=== PATIENT | male | born 1960 | race Caucasian/White ===

== ENCOUNTER → 2019-04-11 | Outpatient (CLI) | payer OTHER ==
[~2019-04-11] MED LIST: AMLODIPINE BESYL5 MG PO; ASPIR 8181 MG; ATIVAN1 MG PO; CRESTOR10 MG PO
== END ==
LOC: SLEEP 19:44
PROVIDERS: ATTEND Internal Medicine
DX: G47.33 Obstructive sleep apnea (adult) (pediatric) (principal)
CPT/HCPCS: 95811

== ENCOUNTER → 2019-04-19 | Outpatient (CLI) | payer OTHER ==
[~2019-04-19] MED LIST changes: +IOPAMIDOL 370 MG/ML 200 ML INFUS..BTL INJ ONE; +SODIUM CHLORIDE 0.9% 100 ML ONE
[2019-04-19 17:15] LABS: BLOOD UREA NITROGEN 17 mg/dL (7-26); BUN/CREATININE RATIO 14 (6-25); CREATININE, SERUM 1.22 mg/dL (0.72-1.25); EST GLOMERULAR FILTRATION RATE > 60 ML/MIN (60-)
--- NOTE | 2019-04-20 09:02 | Diagnostic Imaging Report ---
EXAM: CTA OF THE ABDOMINAL AORTA AND PELVIC ARTERIES INDICATION: Abdominal aortic aneurysm COMPARISON: None. TECHNIQUE: Multi-detector CT technology was employed. CTA of the abdomen and pelvis was performed after the administration of IV contrast. IV CONTRAST: 100 mL of Isovue-370 ORAL CONTRAST: None COMPLICATIONS: None RADIATION DOSE: Total DLP: 1160.58 mGy*cm Estimated effective dose: (DLP x 0.015 x size factor) mSv CTDIvol has been reviewed. It is below the limits set by the Radiation Protocol Committee (RPC). For optimization of anatomic evaluation, multiplanar reconstruction, maximum intensity projections, and advanced 3-D off-line postprocessing were performed on a dedicated stand-alone workstation under the direct supervision of the interpreting physician. FINDINGS: Potential study limitations: None. VASCULAR WITH ADVANCED 3-D OFF-LINE POSTPROCESSING: Status post endovascular repair of abdominal aortic aneurysm. The cranial margin of the graft lies just below the single renal artery origins. The iliac limbs of the grafts terminate above the bilateral iliac bifurcations. The aneurysm sac measures 3.6 cm in maximum oblique AP diameter (series 4, image 82). No prior studies are available for comparison purposes. Postcontrast images show no hyperdense material within the excluded aneurysm sac to suggest presence of endoleak. Graft limbs are widely patent. The suprarenal abdominal aorta is of normal caliber. Patent celiac axis. 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 Single bilateral renal arteries with widely patent ostia. There is no acute aortic pathology . The bilateral common and external iliac arteries are widely patent without aneurysmal dilatation or significant stenosis. Internal iliac arteries and visceral branches are patent. Common femoral arteries are widely patent. Femoral bifurcations are patent. Proximal superficial femoral and profundus femoris arteries are patent. LOWER CHEST: Unremarkable. ABDOMEN/pelvis: Scattered subcentimeter hypoattenuating lesions within the right lobe of the liver are too small to further characterize but likely represent small cysts. Otherwise no focal hepatic lesion. Gallbladder, spleen, pancreas, adrenals, and kidneys are unremarkable. The urinary bladder is collapsed and poorly evaluated. Coarse prostatic calcifications. No pelvic sidewall, retroperitoneal, or mesenteric lymphadenopathy. The large bowel shows no distention or wall thickening. Gas and fecal material are noted throughout. The appendix is normal. The stomach is collapsed with prominence of the rugal folds. No small bowel dilatation to suggest obstruction. BONES: Unremarkable IMPRESSION: Status post endovascular repair of infrarenal abdominal aortic aneurysm with a patent and appropriately positioned stent graft. Excluded aneurysm sac measures 3.6 cm in maximum dimension (no prior studies available for comparison), without evidence of endoleak. Signed by: Dr. Tian Juarez M.D. on 04/20/2019 8:58 AM
== END ==
LOC: CT 16:22
PROVIDERS: ATTEND Internal Medicine Interventional Cardiology
DX: I71.4 Abdominal aortic aneurysm, without rupture (principal)
CPT/HCPCS: 36415; 74174; 82565; 84520; J7050; Q9967

== ENCOUNTER → 2021-05-16 | Day surgery (SDC) | payer BC ==
[2021-05-14 10:32] LABS: BASOPHILS # (AUTO) 0.1 (0.0-0.1); BASOPHILS % 0.6 % (0.0-1.0); EOSINOPHILS # (AUTO) 0.3 (0.0-0.4); EOSINOPHILS % 3.1 % (0.0-6.0); HEMATOCRIT 43.6 % (38.2-49.6); HEMOGLOBIN 14.5 g/dL (14.0-18.0); LYMPHOCYTES # (AUTO) 2.3 (1.0-3.2); LYMPHOCYTES % 27.2 % (18.0-39.1); MEAN CORPUSCULAR HEMOGLOBIN 29.8 pg (28-32); MEAN CORPUSCULAR HGB CONC 33.3 g/dL (31-35); MEAN CORPUSCULAR VOLUME 89.7 fL (81-99); MONOCYTES # (AUTO) 0.6 (0.2-0.8); MONOCYTES % 7.4 % (4.4-11.3); NEUTROPHILS # (AUTO) 5.3 (2.1-6.9); NEUTROPHILS % 61.6 % (38.7-80.0); PLATELET COUNT 227 x10e3/uL (140-360); RED BLOOD COUNT 4.86 x10e6/uL (4.3-5.7)
[2021-05-14 11:05] LABS: ANION GAP 14.7 mmol/L (8-16); CALCIUM 9.7 mg/dL (8.4-10.2); CREATININE, SERUM 1.21 mg/dL (0.72-1.25); POTASSIUM 3.7 mmol/L (3.5-5.1)
[~2021-05-16] MED LIST changes: -ASPIR 8181 MG; +ASPIR 8181 MG PO; +BUPIVACAINE HCL 0.5% INJ 30 ML VIAL INJ ONE; +CLINDAMYCIN PHOS 900MG/ 50ML 50 ML IV ONE; +DEXAMETHASONE SOD PHOS INJ 4 MG/ML SDV ONE; +FENTANYL CITRATE/PF 100MCG/2 ML INJ ONE; +HYDROCHLOROTHIA50 MG PO; -IOPAMIDOL 370 MG/ML 200 ML INFUS..BTL INJ ONE; +LIDOCAINE HCL 2% LOCAL INJ 5 ML SDV VIAL INJ ONE; +MIDAZOLAM HCL 2 MG/2 ML VIAL ONE; +ONDANSETRON HCL INJ 2MG/ML 2ML 2 MG/ML VIAL ONE; +POVIDONE IODINE 0.05% 0.05 % ML PO ONE; +PROPOFOL IV EMULSION 10 MG/ML 20 ML VIAL ONE; +SEVOFLURANE INHAL SOLN 250 ML PEN BTL ONE; -SODIUM CHLORIDE 0.9% 100 ML ONE
[2021-05-16 09:25] VITALS: BP 128/76
== END | disposition home or self-care (01) ==
LOC: OR 06:46
PROVIDERS: ATTEND Specialist
DX: S83.221A Peripheral tear of medial meniscus, current injury, right knee, initial encounter (principal); M17.11 Unilateral primary osteoarthritis, right knee; M67.51 Plica syndrome, right knee; M22.41 Chondromalacia patellae, right knee; G47.33 Obstructive sleep apnea (adult) (pediatric); I45.10 Unspecified right bundle-branch block; I10 Essential (primary) hypertension; E78.00 Pure hypercholesterolemia, unspecified; Z88.0 Allergy status to penicillin; X58.XXXA Exposure to other specified factors, initial encounter; Z01.810 Encounter for preprocedural cardiovascular examination; Z01.812 Encounter for preprocedural laboratory examination; Z01.818 Encounter for other preprocedural examination; Z20.822 Contact with and (suspected) exposure to COVID-19; Z79.82 Long term (current) use of aspirin; Z79.899 Other long term (current) drug therapy; Z95.828 Presence of other vascular implants and grafts; Z87.891 Personal history of nicotine dependence
CPT/HCPCS: 29881; 36415; 71046; 80048; 85025; 93005; J1100; J2001; J2250; J2405; J2704; J3010; U0002